=== PATIENT | male | born 1960 | race Caucasian/White ===

== ENCOUNTER 2016-11-03 15:30 | Emergency (ER) | payer OTHER ==
[~2016-11-03] VITALS: Ht 172.7 cm; Wt 90.9 kg
--- NOTE | 2016-11-03 15:35 | ERA ---
ER Documentation Chief Complaint Date/Time DATE: 11/03/16 TIME: 15:34 Chief Complaint Cough HPI The patient is 55-year-old male, presenting to the ER because of intermittent cough for the last couple days, denies fever, chills, neck pain, chest pain, dyspnea, abdominal pain, vomiting, dysuria, diarrhea. He smokes socially Past medical history: Diabetes mellitus, history of CVA with mild left hemiparesis, COPD, dyslipidemia, GERD, glaucoma, chronic back pain Past surgical history: Inguinal herniorrhaphy ROS All systems reviewed and are negative except as per history of present illness. Medications Home Meds Active Scripts Prednisone* (Prednisone*) 50 Mg Tablet, 50 MG PO DAILY, #5 TAB Prov:LOLIS CHO MD 11/03/16 Albuterol Sulfate* (Proair HFA*) 8.5 Gm Hfa.aer.ad, 2 PUFF INH Q4H Y for WHEEZING AND SOB, #1 INHALER Prov:LOLIS CHO MD 11/03/16 Dextromethorphan Hb-Promethazine Hcl (Promethazine DM Syrup) 473 Ml Syrup, 10 ML PO Q6H Y for COUGH, #4 OZ Prov:LOLIS CHO MD 11/03/16 Azithromycin* (Zithromax*) 250 Mg Tablet, 250 MG PO .ZPACK DIRECTED, #6 TAB TAKE 500 MG (2 TABS) THE FIRST DAY THEN 250 MG (1 TAB) DAYS 2-5 Prov:LOLIS CHO MD 11/03/16 Allergies Allergies: Coded Allergies: No Known Allergy (Unverified , 11/03/16) Physical Exam Vitals Vital Signs Date Time Temp Pulse Resp B/P Pulse Ox O2 Delivery O2 Flow Rate FiO2 11/03/16 16:36 98.0 84 20 139/67 97 Nasal Cannula 2.0 11/03/16 16:32 Nasal Cannula 2 11/03/16 16:20 Nasal Cannula 2.0 11/03/16 16:18 90 21 97 Nasal Cannula 11/03/16 16:18 97 2.0 11/03/16 15:40 98.2 87 23 156/91 95 Physical Exam Const: No acute distress. Head: Atraumatic. Eyes: Normal Conjunctiva. ENT: Normal External Ears, Nose and Mouth. Neck: Full range of motion. No meningismus. Resp: Bilateral expiratory wheezes Cardio: Regular rate and rhythm. Abd: Soft, non distended, normal bowel sounds, non tender. Skin: No petechiae or rashes. Back: No midline or flank tenderness. Ext: No cyanosis, or edema. Neur: Awake and alert. No focal deficit Psych: Normal Mood and Affect. Result Diagram: 11/03/16 1557 11/03/16 1557 Results 24 hrs Laboratory Tests Test 11/03/16 15:57 White Blood Count 10.410^3/ul Red Blood Count 4.8410^6/ul Hemoglobin 13.5g/dl Hematocrit 41.2% Mean Corpuscular Volume 85.1fl Mean Corpuscular Hemoglobin 27.9pg Mean Corpuscular Hemoglobin Concent 32.8g/dl Red Cell Distribution Width 16.1% Platelet Count 04325^3/UL Mean Platelet Volume 9.9fl Neutrophils % 73.4% Lymphocytes % 17.9% Monocytes % 6.9% Eosinophils % 1.1% Basophils % 0.3% Nucleated Red Blood Cells % 0.0/100WBC Neutrophils # 7.610^3/ul Lymphocytes # 1.910^3/ul Monocytes # 0.710^3/ul Eosinophils # 0.110^3/ul Basophils # 0.010^3/ul Nucleated Red Blood Cells # 0.010^3/ul Sodium Level 144mmol/L Potassium Level 4.6mmol/L Chloride Level 104mmol/L Carbon Dioxide Level 29mmol/L Anion Gap 16 Blood Urea Nitrogen 32mg/dl Creatinine 0.86mg/dl Glucose Level 169mg/dl Calcium Level 9.5mg/dl B-Type Natriuretic Peptide 79PG/ML Current Medications Medications (Trade) Dose Ordered Sig/Jay Route PRN Reason Start Time Stop Time Status Last Admin Dose Admin Levalbuterol (Xopenex Neb) 1.25 mg ONCE ONCE [facility] 11/03/16 16:00 11/03/16 16:01 DC 11/03/16 16:18 Ipratropium [place] (Atrovent 0.02% (Neb)) 0.5 mg ONCE ONCE [facility] 11/03/16 16:00 11/03/16 16:01 DC 11/03/16 16:17 Procedures/[place] [id number] Radiology Main Line: [phone] DIAGNOSTIC IMAGING REPORT Patient: RICARDO FELDMAN : 1960 Age: 55 Sex: M MR #: [id number] DOS: 11/03/16 1539 Ordering MD: LOLIS CHO MD Location: E/R Room/Bed: PROCEDURE: Chest x-ray CLINICAL INDICATION: Shortness of breath TECHNIQUE: Chest single view COMPARISON: None FINDINGS: The heart is normal in size. The pulmonary vessels are normal in caliber. The lungs are clear. The costophrenic angles are sharp. The visualized bony thorax is unremarkable. IMPRESSION: No acute cardiopulmonary disease. RPTAT: HH .Dejon Jackson MD, Date Time Electronically viewed and signed by .Dejon Jackson MD, MD on 11/03/2016 17:07 .W/ CC: LOLIS CHO MD EKG: Read by emergency physician Rate/Rhythm: Normal Sinus Rhythm 89 beats/min QRS, ST, T-waves: No ST elevation, no T inversion, right bundle branch block Impression: Abnormal EKG MEDICAL MAKING DECISION: The patient is a 55-year-old male, presenting to the ER because of acute bronchitis, acute bronchitis. He was treated with Xopenex 1.25 mg and Atrovent 0.5 mg nebulizer and 500 mL normal saline for clinical dehydration with good response. The differential diagnoses considered include but are not limited to asthma, COPD, pneumonia, pulmonary embolus, pleural effusion, congestive heart failure. Departure Diagnosis: Primary Impression: Acute bronchitis Additional Impressions: Dehydration Anemia Condition: Good Comments He was discharged with Zithromax, Phenergan DM, albuterol, prednisone I discussed the findings with the patient. I advised the patient to follow-up with the primary physician in about 1-2 days, sooner if needed and return if any concern. LOLIS CHO MD Nov 03, 2016 15:35
[2016-11-03 15:40] VITALS: Ht 172.7 cm; Wt 90.9 kg
[2016-11-03] MEDS ORDERED: IPRATROPIUM (NEB) 0.5 MG/2.5 ML AMP HHN ONE (16:00)
[2016-11-03] MEDS ORDERED: LEVALBUTEROL (NEB) 1.25 MG/0.5 ML AMP HHN ONE (16:00)
[2016-11-03 16:07] LABS: ADD SCAN DIFF NO
[2016-11-03 16:09] LABS: BASOPHILS % 0.3 % (0.0-2.0); EOSINOPHILS # 0.1 10^3/ul (0.0-0.5); EOSINOPHILS % 1.1 % (0.0-7.0); HEMATOCRIT 41.2 % (42.0-52.0); HEMOGLOBIN 13.5 g/dl (14.0-18.0); LYMPHOCYTES # 1.9 10^3/ul (0.8-2.9); LYMPHOCYTES % 17.9 % (15.0-51.0); MEAN CORPUSCULAR HEMOGLOBIN 27.9 pg (29.0-33.0); MEAN CORPUSCULAR HGB CONC 32.8 g/dl (32.0-37.0); MEAN CORPUSCULAR VOLUME 85.1 fl (82.0-101.0); MEAN PLATELET VOLUME 9.9 fl (7.4-10.4); MONOCYTE # 0.7 10^3/ul (0.3-0.9); MONOCYTES % 6.9 % (0.0-11.0); NEUTROPHIL # 7.6 10^3/ul (1.6-7.5); NEUTROPHILS % 73.4 % (39.0-77.0); PLATELET COUNT 267 10^3/UL (140-415); RED BLOOD COUNT 4.84 10^6/ul (4.70-6.10); RED CELL DISTRIBUTION WIDTH 16.1 % (11.5-14.5); WHITE BLOOD COUNT 10.4 10^3/ul (4.8-10.8)
[2016-11-03 16:32] LABS: CALCIUM 9.5 mg/dl (8.4-10.2); CREATININE 0.86 mg/dl (0.61-1.24); POTASSIUM 4.6 mmol/L (3.5-5.1)
[2016-11-03 16:36] VITALS: BP 139/67; PULSE 84; RESP 20; TEMP 98
--- NOTE | 2016-11-03 17:08 | RADRPT ---
PROCEDURE: Chest x-ray CLINICAL INDICATION: Shortness of breath TECHNIQUE: Chest single view COMPARISON: None FINDINGS: The heart is normal in size. The pulmonary vessels are normal in caliber. The lungs are clear. Th e costophrenic angles are sharp. The visualized bony thorax is unremarkable. IMPRESSION: No acute cardiopulmonary disease. RPTAT: HH .Dejon Jackson MD, Date Time Electronically viewed and signed by .Dejon Jackson MD, on 11/03/2016 17:07 .W/
[2016-11-03] MEDS ORDERED: AZIT250T94 PO (17:23)
[2016-11-03] MEDS ORDERED: D-ME473S18 PO (17:24)
[2016-11-03] MEDS ORDERED: ALBU8.5H3 INH (17:24)
[2016-11-03] MEDS ORDERED: PRED50TA PO (17:25)
== END 2016-11-03 17:45 | disposition home or self-care (01) ==
LOC: E/R 15:30
DX: J20.9 Acute bronchitis, unspecified (principal); E86.0 Dehydration; D64.9 Anemia, unspecified; E11.9 Type 2 diabetes mellitus without complications; J44.9 Chronic obstructive pulmonary disease, unspecified
CPT/HCPCS: 71010; 80048; 83880; 85025; 93005; 94664; Z7610; 36415

== ENCOUNTER 2016-11-08 14:53 | Emergency (ER) | payer OTHER ==
[~2016-11-08] VITALS: Ht 175.3 cm; Wt 103.0 kg
[~2016-11-08 14:53] MED LIST: ALBU8.5H3 INH; AZIT250T94 PO; D-ME473S18 PO; PRED50TA PO
[2016-11-08 14:57] VITALS: Ht 175.3 cm; Wt 103.0 kg
--- NOTE | 2016-11-08 15:31 | ERD ---
ER Documentation Chief Complaint Date/Time DATE: 11/08/16 TIME: 15:28 Chief Complaint LEFT FOOT BURNING SENSATION HPI 55-year-old male history of developmental delay, anxiety, COPD who is well- known to this emergency department and this provider. The patient presents today after taking a taxi to [place] getting some food and then wanting to stop by the hospital. He states that triage "I just wanted to come to [facility] ". The patient is also complaining of on and off paresthesias at least for 2 weeks the left lower extremity. He denies any pain. No bowel or bladder incontinence and/or retention. The patient is ambulatory with his cane at baseline. The patient has no other complaints today. ROS All systems reviewed and are negative except as per history of present illness. Medications Home Meds Active Scripts Prednisone* (Prednisone*) 50 Mg Tablet, 50 MG PO DAILY, #5 TAB Prov:LOLIS CHO MD 11/03/16 Albuterol Sulfate* (Proair HFA*) 8.5 Gm Hfa.aer.ad, 2 PUFF INH Q4H Y for WHEEZING AND SOB, #1 INHALER Prov:LOLIS CHO MD 11/03/16 Dextromethorphan Hb-Promethazine Hcl (Promethazine DM Syrup) 473 Ml Syrup, 10 ML PO Q6H Y for COUGH, #4 OZ Prov:LOLIS CHO MD 11/03/16 Azithromycin* (Zithromax*) 250 Mg Tablet, 250 MG PO .ZPACK DIRECTED, #6 TAB TAKE 500 MG (2 TABS) THE FIRST DAY THEN 250 MG (1 TAB) DAYS 2-5 Prov:LOLIS CHO MD 11/03/16 Allergies Allergies: Coded Allergies: No Known Allergy (Unverified , 11/03/16) FmHx Family History: No diabetes Physical Exam Vitals Vital Signs Date Time Temp Pulse Resp B/P Pulse Ox O2 Delivery O2 Flow Rate FiO2 11/08/16 14:57 98.1 92 20 143/78 96 Physical Exam General: Well developed, well nourished, no acute distress Head: Normocephalic, atraumatic. Eyes: EOM intact ENT: Moist mucous membranes Neck: Full ROM Respiratory: No respiratory distress Cardiovascular: Good capillary refil Abdominal: Nondistended : Deferred MSK: No edema, no unilateral swelling, 5/5 strength. The patient's left lower extremity has 2+ dorsalis pedis and posterior tibial pulses, good sensation. He is steady on his feet and ambulatory at his baseline. Neurologic: Alert and oriented, moving all extremities, normal speech, steady gait Skin: No rash Psych: Normal mood Procedures/MDM The patient's only complaint today is paresthesias to left lower extremity but he has no signs or symptoms of acute vascular occlusion or DVT. Consider possible peripheral neuropathy but no evidence of cauda equina or cord compression. The patient is ambulatory without signs of fracture. He is steady on his feet and at his neurologic baseline. It seems more consistent with the patient is here for nonspecific reasons possibly related to his underlying anxiety. The patient stopped to get fast food prior to his arrival to the emergency room. He is currently eating [employer] The patient is safe for discharge and does not exhibit any signs or symptoms of acute organic pathology. The patient was given a taxi voucher to go home. The patient is in his usual state of health. Departure Diagnosis: Primary Impression: Encounter for medical screening examination Condition: Stable Patient Instructions: Medical Screening Exam, Nonurgent Additional Instructions: Call your primary care doctor TOMORROW for an appointment during the next 1 WEEK.Tell the medical records secretary that you were referred from this facility.See the doctor sooner or return here if your condition worsens before your appointment time. JAQUAN MCDANIELS MD Nov 08, 2016 15:31
== END 2016-11-08 15:49 | disposition home or self-care (01) ==
LOC: E/R 14:53
DX: Z00.00 Encounter for general adult medical examination without abnormal findings (principal)
CPT/HCPCS: 99282

== ENCOUNTER 2016-11-09 19:50 | Emergency (ER) | payer OTHER ==
[~2016-11-09] VITALS: Ht 162.6 cm; Wt 108.0 kg
[2016-11-09 19:53] VITALS: Ht 162.6 cm; Wt 108.0 kg
--- NOTE | 2016-11-09 20:15 | ERD ---
ER Documentation Chief Complaint Date/Time DATE: 11/09/16 TIME: 20:13 Chief Complaint right leg pain HPI 55-year-old male, developmental delay, chronic pain, chronic shortness of breath who frequents the emergency room multiple times a day who presents with left leg pain. The patient was seen by myself yesterday for similar symptoms. Today the patient is describing vague pain to his left lower extremity that he cannot characterize. The patient is asking for juice and a sandwich. He denies any shortness of breath, no fevers or chills. He denies any bowel or bladder incontinence and/or retention. He is ambulatory with his cane at baseline. ROS All systems reviewed and are negative except as per history of present illness. Medications Home Meds Active Scripts Prednisone* (Prednisone*) 50 Mg Tablet, 50 MG PO DAILY, #5 TAB Prov:LOLIS CHO MD 11/03/16 Albuterol Sulfate* (Proair HFA*) 8.5 Gm Hfa.aer.ad, 2 PUFF INH Q4H Y for WHEEZING AND SOB, #1 INHALER Prov:LOLIS CHO MD 11/03/16 Dextromethorphan Hb-Promethazine Hcl (Promethazine DM Syrup) 473 Ml Syrup, 10 ML PO Q6H Y for COUGH, #4 OZ Prov:LOLIS CHO MD 11/03/16 Azithromycin* (Zithromax*) 250 Mg Tablet, 250 MG PO .ZPACK DIRECTED, #6 TAB TAKE 500 MG (2 TABS) THE FIRST DAY THEN 250 MG (1 TAB) DAYS 2-5 Prov:LOLIS CHO MD 11/03/16 Allergies Allergies: Coded Allergies: No Known Allergy (Unverified , 11/03/16) FmHx Family History: No diabetes Physical Exam Vitals Vital Signs Date Time Temp Pulse Resp B/P Pulse Ox O2 Delivery O2 Flow Rate FiO2 11/09/16 19:53 98.8 98 20 164/85 98 Physical Exam General: Well developed, well nourished, no acute distress Head: Normocephalic, atraumatic. Eyes: Pupils equally reactive, EOM intact ENT: Moist mucous membranes Neck: Supple, no lymphadenopathy Respiratory: Lungs clear bilaterally, no distress Cardiovascular: RRR, no murmurs, rubs, or gallops Abdominal: Soft, non-tender, non-distended, no peritoneal signs : Deferred MSK: No edema, no unilateral swelling, 5/5 strength, 2+ dorsalis pedis and posterior tibial pulses to left lower extremity, soft compartments, negative straight leg raise, steady gait with a cane Neurologic: Alert and oriented, moving all extremities, normal speech, no focal weakness, no cerebellar signs Skin: No rash Psych: Normal mood Procedures/MDM The patient has a history of chronic pain, is a super user of the emergency room. The patient does not exhibit any signs or symptoms concerning for acute pathology. He had a repeat examination of his left lower extremity that shows no evidence of peripheral neuropathy, acute vascular occlusion, peripheral arterial disease. Patient has no evidence of DVT. He has no evidence of infection or cellulitis. The patient is steady on his feet and ambulatory. I do not believe the laboratory testing or diagnostic imaging is indicated at this time. This is consistent with the patient's chronic pain. He was offered Tylenol Motrin and refused. She states that the only thing he wants today is a sandwich and juice. These were provided. The patient will be discharged from the emergency room. It should be noted that the patient is in his usual state of health and is observed ambulating without difficulty with his cane. Departure Diagnosis: Primary Impression: Chronic pain Chronic pain type: other chronic pain Qualified Code: G89.29 - Other chronic pain Condition: Good Patient Instructions: Chronic Pain Additional Instructions: Call your primary care doctor TOMORROW for an appointment during the next 1 WEEK.Tell the paralegal legal secretary that you were referred from this facility.See the doctor sooner or return here if your condition worsens before your appointment time. JAQUAN MCDANIELS MD Nov 09, 2016 20:15
[2016-11-10] MEDS ORDERED: GABA100C14 PO (14:31)
== END 2016-11-09 20:41 | disposition home or self-care (01) ==
LOC: E/R 19:50
DX: G89.29 Other chronic pain (principal)
CPT/HCPCS: 99283

== ENCOUNTER 2016-11-10 13:45 | Emergency (ER) | payer OTHER ==
[~2016-11-10] VITALS: Ht 167.6 cm; Wt 86.0 kg
[2016-11-10 13:59] VITALS: Ht 167.6 cm; Wt 86.0 kg
[2016-11-10] MEDS ORDERED: GABA100C14 PO (14:31)
--- NOTE | 2016-11-10 15:14 | ERD ---
ER Documentation Chief Complaint Date/Time DATE: 11/10/16 TIME: 14:59 Chief Complaint LEFT LEG PAIN CHRONIC HPI 55-year-old male who is frequent visitor of the CD present today complaining of left leg pain 1 week. He described it as burning and itching sensation throughout his left lower leg. He was seen here last night as well as the day before for the same complaints. Patient stated that Tylenol he got last night did not help. He wants morphine patient has history of diabetes, hypertension, neuropathy. He does not take his medications regularly. He states that he only takes diabetic medication when he thinks he eats too much carb. He is able to bear weight and walk without difficulty denies trauma. Denies fever or chills. Denies abdominal pain, nausea or vomiting. ROS All systems reviewed and are negative except as per history of present illness. Medications Home Meds Active Scripts Gabapentin* (Gabapentin*) 100 Mg Capsule, 100 MG PO TID, #90 CAP Prov:OLIVE BILL BATTERY STARTER 11/10/16 Prednisone* (Prednisone*) 50 Mg Tablet, 50 MG PO DAILY, #5 TAB Prov:LOLIS CHO MD 11/03/16 Albuterol Sulfate* (Proair HFA*) 8.5 Gm Hfa.aer.ad, 2 PUFF INH Q4H Y for WHEEZING AND SOB, #1 INHALER Prov:LOLIS CHO MD 11/03/16 Dextromethorphan Hb-Promethazine Hcl (Promethazine DM Syrup) 473 Ml Syrup, 10 ML PO Q6H Y for COUGH, #4 OZ Prov:LOLIS CHO MD 11/03/16 Azithromycin* (Zithromax*) 250 Mg Tablet, 250 MG PO .ZPACK DIRECTED, #6 TAB TAKE 500 MG (2 TABS) THE FIRST DAY THEN 250 MG (1 TAB) DAYS 2-5 Prov:LOLIS CHO MD 11/03/16 Allergies Allergies: Coded Allergies: No Known Allergy (Unverified , 11/03/16) PMhx/Soc History of diabetes, hypertension, neuropathy. Hx Alcohol Use: No Hx Substance Use: No Hx Tobacco Use: No Physical Exam Vitals Vital Signs Date Time Temp Pulse Resp B/P Pulse Ox O2 Delivery O2 Flow Rate FiO2 11/10/16 13:59 97.9 95 20 152/92 98 Physical Exam General: Well-developed, well-nourished, conscious and coherent, in no distress Skin: Warm and dry without rash, good texture and turgor Head: Normocephalic without evidence of trauma Eyes: Sclera and conjunctivae normal; pupils equal, round, and reactive to light; extraocular movements are intact Neck: Supple without meningismus or adenopathy. Carotids are equal. Trachea midline. No bruits or JVD Chest: Normal AP diameter. Good expansion without retractions. Nontender. Lungs are clear to auscultate bilaterally with good tidal volume Heart: Regular rate and rhythm. No murmur, rub, or gallops heard Abdomen: Soft and nontender without masses, guarding, or rebound. Bowel sounds are active. No hepatosplenomegaly Extremities: Full range of motion. Good strength bilaterally. No clubbing, cyanosis, or edema. Peripheral pulses are intact. Sensation intact. Neuro: Alert and oriented 4, GCS 15. Cranial nerves grossly intact. Motor and sensory exams nonfocal. Moves all extremities. Speech clear. Gait normal Procedures/MDM Well-appearing 55-year-old male presented to ED with with left leg pain. Review of patient medical records indicate this is a chronic condition for the patient. And the patient had been here 3 times in the last 3 days for the same complaint. No sign of trauma, DVT, cellulitis. Likely patient pain is due to diabetic peripheral neuropathy secondary to poor blood sugar control. Gabapentin will be prescribed for the patient for outpatient treatment. Patient advised to follow-up with his PCP. I also informed patient that I will not be giving him morphine today. Patient is a high utilizer of the CD. He is Hungarian speaking. Our Hungarian speaking charge nurse helped me communicate with the patient. According to the charge nurse, multiple social service consult been provided for the patient in the past. Patient has a history of medication nonadherence. Patient appears well, stable for discharge and outpatient management. Medical decision making shared with patient and family. Education provided to patient and family. Patient and family expressed understanding of the plan. Medications on discharge: Gabapentin. Follow-up: Primary care provider in 2-3 days or return to ED if worse. Departure Diagnosis: Primary Impression: Diabetic neuropathy Diabetes mellitus type: type 2 Diabetes mellitus complication detail: diabetic mononeuropathy Qualified Code: E11.41 - Diabetic mononeuropathy associated with type 2 diabetes mellitus Condition: Stable Patient Instructions: Neuropathy, Peripheral Additional Instructions: Call your primary care doctor TOMORROW for an appointment during the next 2-3 days.See the doctor sooner or return here if your condition worsens before your appointment time. OLIVE BILL NP Nov 10, 2016 15:13
== END 2016-11-10 15:01 | disposition home or self-care (01) ==
LOC: FTE 13:45
DX: E11.41 Type 2 diabetes mellitus with diabetic mononeuropathy (principal); I10 Essential (primary) hypertension
CPT/HCPCS: 99283

== ENCOUNTER 2016-11-11 15:42 | Emergency (ER) | payer SELFPAY ==
[~2016-11-11] VITALS: Ht 165.1 cm; Wt 90.0 kg
[~2016-11-11 15:42] MED LIST changes: +GABA100C14 PO
[2016-11-11 16:01] VITALS: Ht 165.1 cm; Wt 90.0 kg
== END 2016-11-11 20:50 | disposition left against medical advice (07) ==
LOC: E/R 15:42
DX: Z53.21 Procedure and treatment not carried out due to patient leaving prior to being seen by health care provider (principal)

== ENCOUNTER 2016-11-13 09:55 | Emergency (ER) | payer OTHER ==
[~2016-11-13] VITALS: Ht 172.7 cm; Wt 104.5 kg
[2016-11-13 10:01] VITALS: Ht 172.7 cm; Wt 104.5 kg
[2016-11-13] MEDS ORDERED: ASPIRIN 81 MG TAB PO ONE (10:30)
[2016-11-13] MEDS ORDERED: ACETAMINOPHEN 325 MG TAB PO ONE (10:30)
[2016-11-13 11:11] LABS: ADD SCAN DIFF NO
[2016-11-13 11:15] LABS: BASOPHILS % 0.4 % (0.0-2.0); EOSINOPHILS # 0.1 10^3/ul (0.0-0.5); EOSINOPHILS % 1.4 % (0.0-7.0); HEMATOCRIT 37.5 % (42.0-52.0); HEMOGLOBIN 12.4 g/dl (14.0-18.0); LYMPHOCYTES # 1.5 10^3/ul (0.8-2.9); LYMPHOCYTES % 17.2 % (15.0-51.0); MEAN CORPUSCULAR HEMOGLOBIN 28.1 pg (29.0-33.0); MEAN CORPUSCULAR HGB CONC 33.1 g/dl (32.0-37.0); MEAN CORPUSCULAR VOLUME 84.8 fl (82.0-101.0); MEAN PLATELET VOLUME 10.1 fl (7.4-10.4); MONOCYTE # 0.7 10^3/ul (0.3-0.9); MONOCYTES % 7.8 % (0.0-11.0); NEUTROPHIL # 6.1 10^3/ul (1.6-7.5); PLATELET COUNT 264 10^3/UL (140-415); RED BLOOD COUNT 4.42 10^6/ul (4.70-6.10); RED CELL DISTRIBUTION WIDTH 16.4 % (11.5-14.5); WHITE BLOOD COUNT 8.4 10^3/ul (4.8-10.8)
[2016-11-13] MEDS ORDERED: HALOPERIDOL 5 MG INJ IM ONE (11:30)
[2016-11-13] MEDS ORDERED: LORAZEPAM 2 MG INJ IM ONE (11:30)
[2016-11-13 11:34] LABS: INR 0.91; PROTIME 12.3 Sec (12.2-14.2)
[2016-11-13 11:35] LABS: ANION GAP 11 (8-16); BLOOD UREA NITROGEN 16 mg/dl (7-20); CALCIUM 8.9 mg/dl (8.4-10.2); CARBON DIOXIDE 31 mmol/L (21-31); CHLORIDE 101 mmol/L (97-110); CREATININE 0.82 mg/dl (0.61-1.24); GLUCOSE 117 mg/dl (70-220); PARTIAL THROMBOPLASTIN TIME 28.1 Sec (25.0-35.0); POTASSIUM 3.8 mmol/L (3.5-5.1); SODIUM 139 mmol/L (135-144)
--- NOTE | 2016-11-13 11:36 | RADRPT ---
PROCEDURE: XR Chest. CLINICAL INDICATION: 55-year-old male with chest pain. TECHNIQUE: Single frontal view of the chest was obtained. COMPARISON: None FINDINGS: The soft tissues are generous. There are degenerative osteophytes in the thoracic spine. The heart , cardiomediastinal silhouette and hilar structures are normal. The pulmonary vasculature is normal. There is a suboptimal inspiration.. There are vascular calcifications in the aortic arch. The patricia gs are clear. The costophrenic angles are normal. IMPRESSION: 1. Atherosclerosis of the aortic arch. 2. No evidence of active cardiopulmonary disease. 3. Spondylosis of the thoracic spine. RPTAT:AAJJ Physician Eleanor Date Time Electronically viewed and signed by Kenney Castro Physician on 11/13/2016 11:35 DEL/
[2016-11-13 11:47] LABS: TROPONIN-I < 0.012 ng/ml (0.00-0.12)
[2016-11-13 12:01] LABS: ACETAMINOPHEN < 10.0 ug/ml (10.0-30.0); ETHANOL < 10.0 mg/dl; SALICYLATE < 1.0 mg/dl (5.0-30.0)
[2016-11-13] MEDS ORDERED: METF1000 PO (13:22)
[2016-11-13] MEDS ORDERED: GLIM1TAB2 PO (13:22)
[2016-11-13] MEDS ORDERED: ATOR20TA38 PO (13:22)
[2016-11-13] MEDS ORDERED: ATEN50TA PO (13:23)
[2016-11-13] MEDS ORDERED: GABA300C16 PO (13:23)
[2016-11-13] MEDS ORDERED: SITA100T8 PO (13:23)
[2016-11-13] MEDS ORDERED: CLOP75TA4 PO (13:24)
[2016-11-13] MEDS ORDERED: LISI20TA11 PO (13:24)
[2016-11-13] MEDS ORDERED: ONDA-43 PO (13:25)
[2016-11-13] MEDS ORDERED: LACT10SO5 PO (13:26)
[2016-11-13] MEDS ORDERED: BISA5TAB6 PO (13:26)
[2016-11-13] MEDS ORDERED: OMEP20CA16 PO (13:27)
[2016-11-13] MEDS ORDERED: LATA2.5D2 BOTH EYES (13:28)
[2016-11-13] MEDS ORDERED: ESCI10TA48 PO (13:28)
[2016-11-13] MEDS ORDERED: AMIT25TA9 PO (13:28)
[2016-11-13] MEDS ORDERED: ZOLP10TA5 PO (13:29)
[2016-11-13] MEDS ORDERED: HYD25 PO (13:29)
[2016-11-13] MEDS ORDERED: ASPI-664 PO (13:29)
[2016-11-13] MEDS ORDERED: TRAM-40 PO (13:30)
[2016-11-13] MEDS ORDERED: LANT3I SC (13:32)
--- NOTE | 2016-11-13 14:20 | ERD ---
ER Documentation Chief Complaint Date/Time DATE: 11/13/16 TIME: 14:16 Chief Complaint BROUGHT IN VIA EMS FROM HOME WITH C/O PAIN HPI This 55-year-old male presented with generalized body pain including chest pain is been going on for many years. Is a frequent visitor the emergency room and comes in almost every day with usually negative workups. He denies any fever and chills. Denies any shortness of breath nausea or vomiting. ROS All systems reviewed and are negative except as per history of present illness. Medications Home Meds Reported Medications Insulin Glargine* (Lantus*) 100 Unit/Ml Soln, SC QHS, #1 VIAL 11/13/16 Tramadol Hcl* (Ultram*) 50 Mg Tablet, 50 MG PO TID Y for PAIN, TAB 11/13/16 Zolpidem Tartrate* (Zolpidem Tartrate*) 10 Mg Tablet, 10 MG PO QHS Y for INSOMNIA, #30 TAB 11/13/16 Hydrochlorothiazide* (Hydrochlorothiazide*) 25 Mg Tab, 25 MG PO DAILY, #30 TAB 11/13/16 Aspirin* (Aspirin* EC) 81 Mg Tablet.dr, 81 MG PO DAILY, TAB 11/13/16 Amitriptyline Hcl* (Amitriptyline Hcl*) 25 Mg Tablet, 25 MG PO QHS, #30 TAB 11/13/16 Escitalopram Oxalate* (Escitalopram Oxalate*) 10 Mg Tablet, 10 MG PO DAILY, #30 TAB 11/13/16 Latanoprost (Latanoprost) 2.5 Ml Drops, 1 DROP BOTH EYES QHS, #1 BOTTLE 11/13/16 Omeprazole* (Omeprazole*) 20 Mg Capsule.dr, 20 MG PO DAILY, #30 CAP 11/13/16 Lactulose* (Lactulose*) 10 Gm/15 Ml Solution, 10 GM PO Q6, ML 11/13/16 Bisacodyl* (Bisacodyl*) 5 Mg Tablet.dr, 5 MG PO BID, TAB 11/13/16 Ondansetron Hcl* (Zofran*) 4 Mg Tab, 4 MG PO Q6H Y for NAUSEA AND OR VOMITING, TAB 11/13/16 Lisinopril* (Lisinopril*) 20 Mg Tablet, 20 MG PO DAILY, #30 TAB 11/13/16 Clopidogrel Bisulfate* (Clopidogrel Bisulfate*) 75 Mg Tablet, 75 MG PO DAILY, # 30 TAB 11/13/16 Atenolol* (Atenolol*) 50 Mg Tablet, 50 MG PO DAILY, #30 TAB 11/13/16 Gabapentin* (Gabapentin*) 300 Mg Capsule, 300 MG PO TID, #90 CAP 11/13/16 Sitagliptin* (Januvia*) 100 Mg Tablet, 100 MG PO DAILY, #30 TAB 11/13/16 Glimepiride* (Glimepiride*) 1 Mg Tablet, 1 MG PO WITH BREAKFAST, TAB 11/13/16 Atorvastatin Calcium* (Atorvastatin Calcium*) 20 Mg Tablet, 20 MG PO QHS, #30 TAB 11/13/16 Metformin Hcl* (Metformin Hcl*) 1,000 Mg Tablet, 1000 MG PO WITH BREAKFAST DINNE , #60 TAB 11/13/16 Discontinued Scripts Gabapentin* (Gabapentin*) 100 Mg Capsule, 100 MG PO TID, #90 CAP Prov:OLIVE BILL VIRTUAL OFFICE ASSISTANT 11/10/16 Prednisone* (Prednisone*) 50 Mg Tablet, 50 MG PO DAILY, #5 TAB Prov:LOLIS CHO MD 11/03/16 Albuterol Sulfate* (Proair HFA*) 8.5 Gm Hfa.aer.ad, 2 PUFF INH Q4H Y for WHEEZING AND SOB, #1 INHALER Prov:LOLIS CHO MD 11/03/16 Dextromethorphan Hb-Promethazine Hcl (Promethazine DM Syrup) 473 Ml Syrup, 10 ML PO Q6H Y for COUGH, #4 OZ Prov:LOLIS CHO MD 11/03/16 Azithromycin* (Zithromax*) 250 Mg Tablet, 250 MG PO .AlexPACK DIRECTED, #6 TAB TAKE 500 MG (2 TABS) THE FIRST DAY THEN 250 MG (1 TAB) DAYS 2-5 Prov:LOLIS CHO MD 11/03/16 Allergies Allergies: Coded Allergies: No Known Allergy (Unverified , 11/13/16) PMhx/Soc Hx Alcohol Use: No Hx Substance Use: No Hx Tobacco Use: Yes Smoking Status: Current every day smoker Physical Exam Vitals Vital Signs Date Time Temp Pulse Resp B/P Pulse Ox O2 Delivery O2 Flow Rate FiO2 11/13/16 10:01 98.2 84 18 140/85 99 Physical Exam Const: [] No acute distress Head: Atraumatic Eyes: Normal Conjunctiva ENT: Normal External Ears, Nose and Mouth. Neck: Full range of motion..~ No meningismus. Resp: Clear to auscultation bilaterally Cardio: Regular rate and rhythm, no murmurs Abd: Soft, non tender, non distended. Normal bowel sounds Skin: No petechiae or rashes Back: No midline or flank tenderness Ext: No cyanosis, or edema Neur: Awake and alert and oriented 3, no focal deficits Psych: Normal Mood and Affect Result Diagram: 11/13/16 1053 11/13/16 1053 Results 24 hrs Laboratory Tests Test 11/13/16 10:53 White Blood Count 8.410^3/ul Red Blood Count 4.4210^6/ul Hemoglobin 12.4g/dl Hematocrit 37.5% Mean Corpuscular Volume 84.8fl Mean Corpuscular Hemoglobin 28.1pg Mean Corpuscular Hemoglobin Concent 33.1g/dl Red Cell Distribution Width 16.4% Platelet Count 49273^3/UL Mean Platelet Volume 10.1fl Neutrophils % 73.0% Lymphocytes % 17.2% Monocytes % 7.8% Eosinophils % 1.4% Basophils % 0.4% Nucleated Red Blood Cells % 0.0/100WBC Neutrophils # 6.110^3/ul Lymphocytes # 1.510^3/ul Monocytes # 0.710^3/ul Eosinophils # 0.110^3/ul Basophils # 0.010^3/ul Nucleated Red Blood Cells # 0.010^3/ul Prothrombin Time 12.3Sec Prothrombin Time Ratio 1.0 INR International Normalized Ratio 0.91 Activated Partial Thromboplast Time 28.1Sec Sodium Level 139mmol/L Potassium Level 3.8mmol/L Chloride Level 101mmol/L Carbon Dioxide Level 31mmol/L Anion Gap 11 Blood Urea Nitrogen 16mg/dl Creatinine 0.82mg/dl Glucose Level 117mg/dl Calcium Level 8.9mg/dl Troponin I < 0.012ng/ml Salicylates Level < 1.0mg/dl Acetaminophen Level < 10.0ug/ml Ethyl Alcohol Level < 10.0mg/dl Current Medications Medications (Trade) Dose Ordered Sig/Jay Route PRN Reason Start Time Stop Time Status Last Admin Dose Admin Aspirin (Aspirin) 324 mg ONCE ONCE PO 11/13/16 10:30 11/13/16 10:31 DC 11/13/16 11:11 Acetaminophen (Tylenol Tab) 325 mg ONCE ONCE PO 11/13/16 10:30 11/13/16 10:31 DC 11/13/16 11:11 Haloperidol (Haldol) 5 mg ONCE ONCE IM 11/13/16 11:30 11/13/16 11:31 DC 11/13/16 11:17 Lorazepam (Ativan) 1 mg ONCE ONCE IM 11/13/16 11:30 11/13/16 11:31 DC 11/13/16 11:17 Procedures/MDM Generalized body pain. Patient is attempting to use the restroom multiple times he does not actually void.. Did then say he has some lower abdominal pain attempted to obtain a urinalysis and staff is unable to obtain urine. I am going to get a CT of his abdomen pelvis to check for any acute abnormalities that might be causing his lower abdominal pain. Also obtaining a scrotal ultrasound for patient sitting he has some testicular tenderness. Otherwise list of low suspicion for acute coronary syndrome patient has a nonischemic EKG and negative troponin likely chronic pain. CAT scan and ultrasound will be followed up. Discharging patient with primary care follow-up in 2-3 days and return precautions. EKG interpretation: Normal sinus rhythm rate of 84, right bundle branch block, left axis deviation, no ST or T-wave changes concerning for acute ischemia Chest x-ray interpretation: No acute process seen no infiltrate, no widened mediastinum, no fractures per Departure Diagnosis: Primary Impression: Generalized pain Condition: Stable NEWTON BOB DO Nov 13, 2016 14:20
[2016-11-13] MEDS ORDERED: TYL500 PO (14:38)
--- NOTE | 2016-11-13 15:20 | RADRPT ---
PROCEDURE: US Scrotum. CLINICAL INDICATION: Scrotal pain. TECHNIQUE: Multiple sonographic images of the scrotal region were obtained utilizing a linear arra y transducer with grayscale and color-flow and pulsed Doppler imaging. The images were reviewed on a high-resolution PACS workstation. COMPARISON: No prior studies are available for comparison. FINDINGS: The right testis measures 3.4 x 2.5 x 2.3 cm. The left testis measures 4.3 x 2.5 x 2.3 cm. There is no intratesticular mass. There is a benign left epididymal cyst measuring 0.3 cm. The epididymi are otherwise normal. There is normal flow to both testes demonstrated with color Doppler and pulsed Doppler sonography. There are small bilateral hydroceles. There is no varicocele. The scrotal wall is unremarkable. IMPRESSION: 1. Small benign left epididymal cyst. 2. Small bilateral hydroceles. 3. Otherwise normal scrotal ultrasound. RPTAT: QQ .Amrit Gregory MD, MD Date Time Electronically viewed and signed by .Amrit Gregory MD, on 11/13/2016 15:19 .R/
[2016-11-13 17:43] VITALS: BP 138/68; PULSE 77; RESP 20; TEMP 97.8
== END 2016-11-13 17:49 | disposition home or self-care (01) ==
LOC: E/R 09:55
DX: R07.9 Chest pain, unspecified (principal); E11.9 Type 2 diabetes mellitus without complications; J44.9 Chronic obstructive pulmonary disease, unspecified; F17.210 Nicotine dependence, cigarettes, uncomplicated; Z79.01 Long term (current) use of anticoagulants; Z79.4 Long term (current) use of insulin; Z79.82 Long term (current) use of aspirin; Z79.84 Long term (current) use of oral hypoglycemic drugs
CPT/HCPCS: 36415; 71010; 76870; 80048; 80306; 84484; 85025; 85610; 85730; 93005; 96372; J1630; J2060; P9612; Z7502; Z7610

== ENCOUNTER 2016-11-14 14:29 | Emergency (ER) | payer OTHER ==
[~2016-11-14] VITALS: Ht 165.1 cm; Wt 100.0 kg
[~2016-11-14 14:29] MED LIST changes: -ALBU8.5H3 INH; +AMIT25TA9 PO; +ASPI-664 PO; +ATEN50TA PO; +ATOR20TA38 PO; -AZIT250T94 PO; +BISA5TAB6 PO; +CLOP75TA4 PO; -D-ME473S18 PO; +ESCI10TA48 PO; -GABA100C14 PO; +GABA300C16 PO; +GLIM1TAB2 PO; +HYD25 PO; +LACT10SO5 PO; +LANT3I SC; +LATA2.5D2 BOTH EYES; +LISI20TA11 PO; +METF1000 PO; +OMEP20CA16 PO; +ONDA-43 PO; -PRED50TA PO; +SITA100T8 PO; +TRAM-40 PO; +TYL500 PO; +ZOLP10TA5 PO
[2016-11-14 15:00] VITALS: Ht 165.1 cm; Wt 100.0 kg
--- NOTE | 2016-11-14 15:33 | ERA ---
ER Documentation Chief Complaint Date/Time DATE: 11/14/16 TIME: 15:27 Chief Complaint HPI This is a 55-year-old male well-known to this provider in this emergency department with multiple visits per day. The patient presents with his usual complaints of body pain and asking to go to the restroom. The patient was seen here yesterday with a thorough workup and refused CT imaging and eloped from the emergency department. The patient today is asking for food in a bathroom. Further history is limited given the patient's developmental delay. ROS All systems reviewed and are negative except as per history of present illness. Medications Home Meds Active Scripts Acetaminophen* (Tylenol*) 500 Mg Tab, 500 MG PO Q4H Y for MILD PAIN LEVEL 1-3, # 10 TAB Prov:NEWTON BOB DO 11/13/16 Reported Medications Insulin Glargine* (Lantus*) 100 Unit/Ml Soln, SC QHS, #1 VIAL 11/13/16 Tramadol Hcl* (Ultram*) 50 Mg Tablet, 50 MG PO TID Y for PAIN, TAB 11/13/16 Zolpidem Tartrate* (Zolpidem Tartrate*) 10 Mg Tablet, 10 MG PO QHS Y for INSOMNIA, #30 TAB 11/13/16 Hydrochlorothiazide* (Hydrochlorothiazide*) 25 Mg Tab, 25 MG PO DAILY, #30 TAB 11/13/16 Aspirin* (Aspirin* EC) 81 Mg Tablet.dr, 81 MG PO DAILY, TAB 11/13/16 Amitriptyline Hcl* (Amitriptyline Hcl*) 25 Mg Tablet, 25 MG PO QHS, #30 TAB 11/13/16 Escitalopram Oxalate* (Escitalopram Oxalate*) 10 Mg Tablet, 10 MG PO DAILY, #30 TAB 11/13/16 Latanoprost (Latanoprost) 2.5 Ml Drops, 1 DROP BOTH EYES QHS, #1 BOTTLE 11/13/16 Omeprazole* (Omeprazole*) 20 Mg Capsule.dr, 20 MG PO DAILY, #30 CAP 11/13/16 Lactulose* (Lactulose*) 10 Gm/15 Ml Solution, 10 GM PO Q6, ML 11/13/16 Bisacodyl* (Bisacodyl*) 5 Mg Tablet.dr, 5 MG PO BID, TAB 7/7/17 Ondansetron Hcl* (Zofran*) 4 Mg Tab, 4 MG PO Q6H Y for NAUSEA AND OR VOMITING, TAB 11/13/16 Lisinopril* (Lisinopril*) 20 Mg Tablet, 20 MG PO DAILY, #30 TAB 11/13/16 Clopidogrel Bisulfate* (Clopidogrel Bisulfate*) 75 Mg Tablet, 75 MG PO DAILY, # 30 TAB 11/13/16 Atenolol* (Atenolol*) 50 Mg Tablet, 50 MG PO DAILY, #30 TAB 11/13/16 Gabapentin* (Gabapentin*) 300 Mg Capsule, 300 MG PO TID, #90 CAP 11/13/16 Sitagliptin* (Januvia*) 100 Mg Tablet, 100 MG PO DAILY, #30 TAB 11/13/16 Glimepiride* (Glimepiride*) 1 Mg Tablet, 1 MG PO WITH BREAKFAST, TAB 11/13/16 Atorvastatin Calcium* (Atorvastatin Calcium*) 20 Mg Tablet, 20 MG PO QHS, #30 TAB 11/13/16 Metformin Hcl* (Metformin Hcl*) 1,000 Mg Tablet, 1000 MG PO WITH BREAKFAST DINNE , #60 TAB 11/13/16 Discontinued Scripts Gabapentin* (Gabapentin*) 100 Mg Capsule, 100 MG PO TID, #90 CAP Prov:OLIVE BILL QUILL WORKER 11/10/16 Prednisone* (Prednisone*) 50 Mg Tablet, 50 MG PO DAILY, #5 TAB Prov:LOLIS CHO MD 11/03/16 Albuterol Sulfate* (Proair HFA*) 8.5 Gm Hfa.aer.ad, 2 PUFF INH Q4H Y for WHEEZING AND SOB, #1 INHALER Prov:LOLIS CHO MD 11/03/16 Dextromethorphan Hb-Promethazine Hcl (Promethazine DM Syrup) 473 Ml Syrup, 10 ML PO Q6H Y for COUGH, #4 OZ Prov:LOLIS CHO MD 11/03/16 Azithromycin* (Zithromax*) 250 Mg Tablet, 250 MG PO .AlexPACK DIRECTED, #6 TAB TAKE 500 MG (2 TABS) THE FIRST DAY THEN 250 MG (1 TAB) DAYS 2-5 Prov:LOLIS CHO MD 11/03/16 Allergies Allergies: Coded Allergies: No Known Allergy (Unverified , 11/14/16) PMhx/Soc History of Surgery: No Anesthesia Reaction: No Hx Neurological Disorder: No Hx Respiratory Disorders: Yes (COPD) Hx Cardiac Disorders: Yes (history of CVA with mild left hemiparesis, HYPERLIPIDEMIA) Hx Psychiatric Problems: No Hx Miscellaneous Medical Probl: Yes (dm) Hx Alcohol Use: No Hx Substance Use: No Hx Tobacco Use: Yes Smoking Status: Current every day smoker Physical Exam Vitals Vital Signs Date Time Temp Pulse Resp B/P Pulse Ox O2 Delivery O2 Flow Rate FiO2 11/14/16 15:51 98.5 88 16 141/87 97 Room Air Physical Exam General: Well developed, well nourished, no acute distress, ambulatory with his cane Head: Normocephalic, atraumatic. Eyes: Pupils equally reactive, EOM intact ENT: Moist mucous membranes Neck: Supple, no lymphadenopathy Respiratory: Lungs clear bilaterally, no distress Cardiovascular: RRR, no murmurs, rubs, or gallops Abdominal: Soft, non-tender, non-distended, no peritoneal signs : Deferred MSK: No edema, no unilateral swelling, 5/5 strength Neurologic: Alert and oriented, moving all extremities, normal speech, no focal weakness, no cerebellar signs Skin: No rash Psych: Normal mood Result Diagram: 11/14/16 1450 11/14/16 1450 Results 24 hrs Laboratory Tests Test 11/14/16 14:50 White Blood Count 7.810^3/ul Red Blood Count 4.1710^6/ul Hemoglobin 12.0g/dl Hematocrit 35.5% Mean Corpuscular Volume 85.1fl Mean Corpuscular Hemoglobin 28.8pg Mean Corpuscular Hemoglobin Concent 33.8g/dl Red Cell Distribution Width 16.2% Platelet Count 53849^3/UL Mean Platelet Volume 9.9fl Neutrophils % 69.6% Lymphocytes % 21.4% Monocytes % 7.5% Eosinophils % 0.9% Basophils % 0.3% Nucleated Red Blood Cells % 0.0/100WBC Neutrophils # 5.410^3/ul Lymphocytes # 1.710^3/ul Monocytes # 0.610^3/ul Eosinophils # 0.110^3/ul Basophils # 0.010^3/ul Nucleated Red Blood Cells # 0.010^3/ul Sodium Level 141mmol/L Potassium Level 3.6mmol/L Chloride Level 101mmol/L Carbon Dioxide Level 29mmol/L Anion Gap 15 Blood Urea Nitrogen 16mg/dl Creatinine 0.81mg/dl Glucose Level 147mg/dl Calcium Level 9.2mg/dl Total Bilirubin 0.4mg/dl Direct Bilirubin 0.00mg/dl Indirect Bilirubin 0.4mg/dl Aspartate Amino Transf (AST/SGOT) 19IU/L Alanine Aminotransferase (ALT/SGPT) 30IU/L Alkaline Phosphatase 70IU/L Total Protein 6.8g/dl Albumin 4.5g/dl Globulin 2.30g/dl Albumin/Globulin Ratio 1.95 Ethyl Alcohol Level < 10.0mg/dl Procedures/MDM LAB INTERPRETATION: no acute process MEDICAL DECISION MAKING: I am concerned about the frequency of this patient's visits to the emergency room as they are increasing in frequency. I am concerned with the patient's level of developmental delay the fact that he lives home alone. Multiple efforts in the past have been attempted including social work. It appears that a recent attempt with his mother was made to get home health care however this has not worked. At this point I am concerned about the patient's well-being. I believe he is gravely disabled and may benefit from admission and psychiatric placement. ER COURSE: During the patient's ER course he is starting to have some delusions of persecution feeling at the nursing staff is trying to kill him. Additional reasons for this patient to be placed. The patient is with a one-to-one sitter at this time. We are pending telemetry medicine psychiatry evaluation. I kept the patient and/or family informed of laboratory and diagnostic imaging results throughout the emergency room course. DISPOSITION PLAN: Pending telemetry medicine psychiatry evaluation Departure Diagnosis: Primary Impression: Grave disability Additional Impression: Delusion of persecution Condition: Stable JAQUAN MCDANIELS MD Nov 14, 2016 15:33
[2016-11-14 15:49] LABS: ADD SCAN DIFF NO
[2016-11-14 15:50] LABS: BASOPHILS % 0.3 % (0.0-2.0); EOSINOPHILS # 0.1 10^3/ul (0.0-0.5); EOSINOPHILS % 0.9 % (0.0-7.0); HEMATOCRIT 35.5 % (42.0-52.0); LYMPHOCYTES # 1.7 10^3/ul (0.8-2.9); LYMPHOCYTES % 21.4 % (15.0-51.0); MEAN CORPUSCULAR HEMOGLOBIN 28.8 pg (29.0-33.0); MEAN CORPUSCULAR HGB CONC 33.8 g/dl (32.0-37.0); MEAN CORPUSCULAR VOLUME 85.1 fl (82.0-101.0); MEAN PLATELET VOLUME 9.9 fl (7.4-10.4); MONOCYTE # 0.6 10^3/ul (0.3-0.9); MONOCYTES % 7.5 % (0.0-11.0); NEUTROPHIL # 5.4 10^3/ul (1.6-7.5); NEUTROPHILS % 69.6 % (39.0-77.0); PLATELET COUNT 248 10^3/UL (140-415); RED BLOOD COUNT 4.17 10^6/ul (4.70-6.10); RED CELL DISTRIBUTION WIDTH 16.2 % (11.5-14.5); WHITE BLOOD COUNT 7.8 10^3/ul (4.8-10.8)
[2016-11-14 16:07] LABS: ALANINE AMINOTRANSFERASE 30 IU/L (13-69); ALBUMIN 4.5 g/dl (3.3-4.9); ALBUMIN/GLOBULIN RATIO 1.95; ALKALINE PHOSPHATASE 70 IU/L (42-121); ANION GAP 15 (8-16); ASPARTATE AMINO TRANSFERASE 19 IU/L (15-46); BILIRUBIN,INDIRECT 0.4 mg/dl (0-1.1); BILIRUBIN,TOTAL 0.4 mg/dl (0.2-1.3); BLOOD UREA NITROGEN 16 mg/dl (7-20); CALCIUM 9.2 mg/dl (8.4-10.2); CARBON DIOXIDE 29 mmol/L (21-31); CHLORIDE 101 mmol/L (97-110); CREATININE 0.81 mg/dl (0.61-1.24); GLUCOSE 147 mg/dl (70-220); POTASSIUM 3.6 mmol/L (3.5-5.1); SODIUM 141 mmol/L (135-144); TOTAL PROTEIN 6.8 g/dl (6.1-8.1)
[2016-11-14 16:09] LABS: ETHANOL < 10.0 mg/dl
--- NOTE | 2016-11-14 18:28 | PSY ---
Date/Time of Note Date/Time of Note DATE: 11/14/16 TIME: 21:23 Psychiatric Subjective Eval Consent Pt consented to telemedicine: Yes Subjective Evaluation Patient location: emergency History of present illness HPI: The patient is a 55 yo male with no formal psych hx, does have history of cognitive limitations, lives with parents, prior CVA, was sent to ED by family. Pt is reportedly, and per pt report, becoming psychotic, making less sense, first report wa sthat he thinks the nurses and social workers were going to kill him then told the reference test clerk that when he closes his eyes he is certain the reference test clerk will try to kill him. In addition, pt more agitated and confused at home. In ER pt was pressued, had psychoomotor agitation, disinhibited, problems sitting still. Agreed to go to psych inpatient. This pt is well known to the hospital/ED, coming to ED 6 times this week and is noticably different.Today he came for leg pain. Past Psych Hx: denies PMH, Meds, All: see medical record MSe: seems confused, wanders, pressured speech, only speaks paraguayan, delusion as above Imp: 55 yo male with new onsent psychosis as well as difficulty living in the community -5150 psych admit -zyprexa 2.5mg po x1 -for moderate agitationi zyprexa 2.5mg po prn -for severe agitation haldol 2mg IM, ativan 1mg IM, cogentin 0.5mg im -pt will require full workup fro new psychosis as a 55 yo including stroke, brain scan, infection, metabolic, b12, rpr, tsh Medical history Problems Medical Problems: (1) Acute bronchitis Status: Acute (2) Anemia Status: Acute (3) Bronchitis Status: Acute (4) Chronic pain Status: Acute (5) Dehydration Status: Acute (6) Delusion of persecution Status: Acute (7) Diabetic neuropathy Status: Acute (8) Diabetic neuropathy Status: Acute (9) Encounter for medical screening examination Status: Acute (10) Generalized pain Status: Acute (11) Grave disability Status: Acute (12) Patient left without being seen Status: Acute Allergies: Coded Allergies: No Known Allergy (Unverified , 11/14/16) Psychiatric Objective Eval Mental Status Examination: Laboratory Results Laboratory Tests Test 7/8/17 14:50 White Blood Count 7.810^3/ul Red Blood Count 4.1710^6/ul Hemoglobin 12.0g/dl Hematocrit 35.5% Mean Corpuscular Volume 85.1fl Mean Corpuscular Hemoglobin 28.8pg Mean Corpuscular Hemoglobin Concent 33.8g/dl Red Cell Distribution Width 16.2% Platelet Count 90015^3/UL Mean Platelet Volume 9.9fl Neutrophils % 69.6% Lymphocytes % 21.4% Monocytes % 7.5% Eosinophils % 0.9% Basophils % 0.3% Nucleated Red Blood Cells % 0.0/100WBC Neutrophils # 5.410^3/ul Lymphocytes # 1.710^3/ul Monocytes # 0.610^3/ul Eosinophils # 0.110^3/ul Basophils # 0.010^3/ul Nucleated Red Blood Cells # 0.010^3/ul Sodium Level 141mmol/L Potassium Level 3.6mmol/L Chloride Level 101mmol/L Carbon Dioxide Level 29mmol/L Anion Gap 15 Blood Urea Nitrogen 16mg/dl Creatinine 0.81mg/dl Glucose Level 147mg/dl Calcium Level 9.2mg/dl Total Bilirubin 0.4mg/dl Direct Bilirubin 0.00mg/dl Indirect Bilirubin 0.4mg/dl Aspartate Amino Transf (AST/SGOT) 19IU/L Alanine Aminotransferase (ALT/SGPT) 30IU/L Alkaline Phosphatase 70IU/L Total Protein 6.8g/dl Albumin 4.5g/dl Globulin 2.30g/dl Albumin/Globulin Ratio 1.95 Ethyl Alcohol Level < 10.0mg/dl CHRISTINA ENGLISH Nov 14, 2016 18:27
[2016-11-14] MEDS ORDERED: OLANZAPINE 2.5 MG TAB PO ONE (19:30)
[2016-11-14] MEDS ORDERED: LORAZEPAM 2 MG INJ IM ONE (21:00)
[2016-11-14] MEDS ORDERED: BENZTROPINE 2 MG INJ IV PRN (23:00)
[2016-11-14] MEDS ORDERED: LORAZEPAM 2 MG INJ IV PRN (23:00)
[2016-11-14] MEDS ORDERED: HALOPERIDOL 5 MG INJ IM PRN (23:00)
[2016-11-14] MEDS ORDERED: HALOPERIDOL 5 MG INJ ONE (23:04)
[2016-11-14] MEDS ORDERED: HALOPERIDOL 5 MG INJ IM ONE ×2 (23:30)
--- NOTE | 2016-11-15 00:26 | EN ---
Date/Time of Note Date/Time of Note DATE: 11/15/16 TIME: 00:25 ER Progress Note Been observing this patient who has been admitted for grave disability of psychiatric disturbance. He has been screaming on and off and very agitated. He was given 5 mg of IM Haldol twice. Seemed to have very little effect on him. Going to order 2 mg of p.o. Zyprexa as well as 50 mg IM Benadryl in order to help him calm down and possibly get some rest. NEWTON BOB DO Nov 15, 2016 00:26
[2016-11-15] MEDS ORDERED: OLANZAPINE 5 MG TAB PO ONE (00:30)
[2016-11-15] MEDS ORDERED: DIPHENHYDRAMINE 50 MG INJ IM ONE (00:30)
[2016-11-15] MEDS ORDERED: LORAZEPAM 2 MG INJ IM ONE ×2 (01:30→02:30)
[2016-11-15] MEDS ORDERED: LORAZEPAM 1 MG TAB PO ONE (11:30)
[2016-11-16] MEDS ORDERED: LORAZEPAM 2 MG INJ IM ONE
[2016-11-16] MEDS ORDERED: HALOPERIDOL 5 MG INJ IM ONE
[2016-11-16] MEDS ORDERED: GLIMEPIRIDE 2 MG TAB PO ONE (08:00)
[2016-11-16] MEDS ORDERED: LACTULOSE 30ML CUP PO ONE (08:00)
[2016-11-16] MEDS ORDERED: ASPIRIN 81 MG TAB PO ONE (08:00)
[2016-11-16] MEDS ORDERED: LISINOPRIL 20 MG TAB PO ONE (08:00)
[2016-11-16] MEDS ORDERED: ATENOLOL 50 MG TAB PO ONE (08:00)
[2016-11-16] MEDS ORDERED: HYDROCHLOROTHIAZIDE 25 MG TAB PO ONE (08:00)
[2016-11-16] MEDS ORDERED: CLOPIDOGREL 75 MG TAB PO ONE (08:00)
[2016-11-16] MEDS ORDERED: metFORMIN 500 MG TAB PO ONE (08:00)
[2016-11-16] MEDS ORDERED: GABAPENTIN 300 MG CAP PO ONE (08:00)
[2016-11-16] MEDS ORDERED: ESCITALOPRAM 10 MG TAB PO ONE (08:00)
--- NOTE | 2016-11-16 14:51 | EN ---
Date/Time of Note Date/Time of Note DATE: 11/16/16 TIME: 14:50 ER Progress Note Observation Note: Time: 9 hours Family Hx: No Hypertension Evaluation: Multiple exams showed stable symptoms. Patient did not require much intervention during my observation time. I did write him for all of his chronic medications as he has multiple medical problems. At time of signout, the patient was still awaiting placement to a psychiatric facility. EVANS COBB MD Nov 16, 2016 14:51
[2016-11-16] MEDS: LACTULOSE 30ML CUP PO SCH ×2 (20:51→23:36)
[2016-11-16] MEDS: metFORMIN 500 MG TAB PO SCH (20:52)
[2016-11-16] MEDS: GABAPENTIN 300 MG CAP PO SCH (20:53)
[2016-11-16] MEDS ORDERED: LATANOPROST 0.005% 2.5 ML OPH BOTH EYES SCH (21:00)
[2016-11-16] MEDS ORDERED: ATORVASTATIN 20 MG TAB PO SCH (21:00)
[2016-11-16] MEDS ORDERED: AMITRIPTYLINE 25 MG TAB PO SCH (21:00)
[2016-11-17 02:00] VITALS: TEMP 97
[2016-11-17] MEDS: LACTULOSE 30ML CUP PO SCH ×2 (05:28→13:54)
--- NOTE | 2016-11-17 05:56 | EN ---
Date/Time of Note Date/Time of Note DATE: 11/17/16 TIME: 05:56 ER Progress Note Observation Note: Time: 4 hours Family Hx: No Hypertension Evaluation: Multiple exams showed improving symptoms and no evidence of decompensation MARIANGEL THORNTON Nov 17, 2016 05:56
[2016-11-17] MEDS ORDERED: PANTOPRAZOLE (EC) 40 MG TAB PO SCH (06:00)
[2016-11-17] MEDS ORDERED: GLIMEPIRIDE 2 MG TAB PO SCH (08:00)
--- NOTE | 2016-11-17 08:48 | PSY ---
Date/Time of Note Date/Time of Note DATE: 11/17/16 TIME: 08:42 Psychiatric Subjective Eval Consent Pt consented to telemedicine: Yes Subjective Evaluation Patient location: emergency Chief Complaint: generalized pain Reason for consult: SI, grave disability History of present illness 55 yo disabled male with hx CVA and cognitive problems with frequent ED visits ( 6 times this week only); apprantly, he has a pattern of calling 911 with various complaints. Pt is uncooperative with me but denies si or hi. He says he wants to go to a SNF "[facility]". he says he lives alone and his son is at work so he can not take care of him. Pt is oriented x2 only. Does not appear to respond to internal stimuli. Pt Past psychiatric history hx neurocognitive disorder Hospitalization: no Family History unknown Medical history Problems Medical Problems: (1) Acute bronchitis Status: Acute (2) Anemia Status: Acute (3) Bronchitis Status: Acute (4) Chronic pain Status: Acute (5) Dehydration Status: Acute (6) Delusion of persecution Status: Acute (7) Diabetic neuropathy Status: Acute (8) Diabetic neuropathy Status: Acute (9) Encounter for medical screening examination Status: Acute (10) Generalized pain Status: Acute (11) Grave disability Status: Acute (12) Patient left without being seen Status: Acute Allergies: Coded Allergies: No Known Allergy (Unverified , 11/14/16) Substance Abuse Substance use: No known substance abuse Social History Marital status: single DPA/Conservatorship: No Occupation/Halfway: disabled Psychiatric Objective Eval Physical Examination: Physical Examination: Not Applicable Mental Status Examination: Appearance: Disheveled Eye Contact: Poor Psychomotor Activity: Normal Behavior: Cooperative Speech: Monotone AFFECT: Constricted Mood: Irritable Though Process: Tangential Thought Content: Normal Suicidal: No Homicidal: No On 72 hour hold: No Orientation: x2 Cognition: Drowsy Insight: Impared Judgement: Impared Laboratory Results Laboratory Tests Test 11/15/16 09:37 11/15/16 16:34 11/16/16 08:59 Bedside Glucose 116mg/dL 95mg/dL 102mg/dL Assessment and Plan Assessment/Diagnosis [place] I: Vascular Dementia [place] 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 Caregiver/Family Education Sw - please file APS reprot; pt needs placement. Follow-up/Disposition pt does nto meet inpt psychiatric care criteria - no dts, dto he is not technically gravely disabled because he has a place to live nad income; he also has a son who takes care of him; however, son is not there and the pt abuses 911 system by placing daily phone calls; SW -please file APS reprot; pt does nto have decision making capacity; I recommend a SNF placement JUAN ARMIJO MD Nov 17, 2016 08:48
[2016-11-17] MEDS: metFORMIN 500 MG TAB PO SCH (08:51)
[2016-11-17] MEDS: GABAPENTIN 300 MG CAP PO SCH ×2 (08:53→13:54)
[2016-11-17] MEDS ORDERED: LISINOPRIL 20 MG TAB PO SCH (09:00)
[2016-11-17] MEDS ORDERED: ASPIRIN (EC) 81 MG TAB PO SCH (09:00)
[2016-11-17] MEDS ORDERED: ESCITALOPRAM 10 MG TAB PO SCH (09:00)
[2016-11-17] MEDS ORDERED: LINAGLIPTIN 5 MG TABLET PO SCH (09:00)
[2016-11-17] MEDS ORDERED: CLOPIDOGREL 75 MG TAB PO SCH (09:00)
[2016-11-17] MEDS ORDERED: ATENOLOL 50 MG TAB PO SCH (09:00)
[2016-11-17] MEDS ORDERED: HYDROCHLOROTHIAZIDE 25 MG TAB PO SCH (09:00)
--- NOTE | 2016-11-17 17:28 | EN ---
Date/Time of Note Date/Time of Note DATE: 11/17/16 TIME: 17:27 ER Progress Note I received signout from her previous physician on this patient. This patient was scheduled to meet with social work and with a coordinator for placement for 24 hour care for this patient as he is unable to care for himself at home. There was a meeting scheduled for 5 PM between the coordinator and the patient and the patient's family. This patient's brother did show up in the emergency room and stated he did not want to wait for the coordinator, however after speaking with the patient and the patient's mother they did meet with the coordinator Masha and they stated they will be in touch with her tomorrow for possible placement. The patient will be discharged into the care of the brother at this time. KONRAD SUBRAMANIAN DO Nov 17, 2016 17:28
[2016-11-17 17:39] VITALS: BP 155/72; PULSE 82; RESP 16
[2016-11-17] MEDS ORDERED: DONEPEZIL 5 MG TAB PO SCH (21:00)
[2016-11-17] MEDS ORDERED: RISPERIDONE 0.25 MG TAB PO SCH (21:00)
== END 2016-11-17 17:40 ==
LOC: E/R 14:29
DX: F79 Unspecified intellectual disabilities (principal); F22 Delusional disorders; E11.9 Type 2 diabetes mellitus without complications; J44.9 Chronic obstructive pulmonary disease, unspecified; F17.210 Nicotine dependence, cigarettes, uncomplicated; Z79.84 Long term (current) use of oral hypoglycemic drugs; Z79.82 Long term (current) use of aspirin; Z79.4 Long term (current) use of insulin
CPT/HCPCS: 80053; 80306; 82962; 85025; 96372; 96374; J1200; J1630; J2060; Z7502; Z7610

== ENCOUNTER 2017-10-06 22:52 | Inpatient (IN) | END 2017-10-10 01:00 | DRG 884 ==

== ENCOUNTER 2017-10-30 00:08 | Inpatient (IN) | END 2017-11-01 02:55 | disposition short-term general hospital (02) | DRG 208 ==

== ENCOUNTER 2017-11-29 15:40 | Emergency (ER) | END 2017-11-30 00:22 | disposition home or self-care (01) ==